=== PATIENT | female | born 1960 | race Caucasian/White ===

== ENCOUNTER 2022-09-11 15:40 | Outpatient (CLI) | payer OTHER ==
--- NOTE | 2022-09-13 09:45 | Mammography Report ---
BILATERAL DIGITAL SCREENING MAMMOGRAM 3D/2D: 09/11/2022 CLINICAL: Routine screening. Comparison is made to exams dated: 03/01/2015 mammogram, 06/04/2013 mammogram, and 09/03/2011 mammogram - [facility]. Both breasts are almost entirely fatty (category a/<25% glandular tissue). No significant masses, calcifications, or other findings are seen in either breast. There has been no significant interval change. IMPRESSION: NEGATIVE There is no mammographic evidence of malignancy. A 1 year screening mammogram is recommended. Based on the Tyrer Cuzick model (a risk assessment model) the patients lifetime risk is 4.4% and her 10 year risk is 2.0%. According to the ACR, ACS, and NCCN guidelines, an annual breast MRI exam anni g with mammogram is recommended if the patients lifetime risk is 20% or greater. This exam was interpreted at Station ID: [id number]. NOTE: For mammograms, a report in lay terms will be sent to the patient. Approximately 15% of breast malignancies will not be visualized mammographically. In the management of a palpable breast mass, a negative mammogram must not discourage biopsy of a clinically suspicious lesion. Electronically Signed By: Jelly [email or web address]/[email or web address]:09/12/2022 09:27:19 ACR BI-RADS Category 1: Negative 3341F PARENCHYMAL PATTERN: (F) - The breast(s) demonstrate(s) diffuse fatty replacement. BI-RADS CATEGORY: (1) - 1 RECOMMENDATION: (ANNUAL) - Recommend routine annual screening mammography. [id number] 1 year screening LATERALITY: (B)
== END 2022-09-11 15:41 | disposition home or self-care (01) ==
LOC: DI.N 15:40
PROVIDERS: ATTEND Internal Medicine
DX: Z12.31 Encounter for screening mammogram for malignant neoplasm of breast (principal)

== ENCOUNTER 2023-01-15 12:20 | Outpatient (CLI) | payer OTHER ==
--- NOTE | 2023-01-15 15:07 | XRAY Report ---
PROCEDURE: Shoulder 2 View RT INDICATIONS: PAIN IN RIGHT SHOULDER TECHNIQUE: 2 views of the shoulder were acquired. COMPARISON: None. FINDINGS: Bones: No fractures or dislocations. No suspicious bony lesions. Visualized ribs appear intact. A cromioclavicular and humeral joint space and associated osteophytosis. Calcification in the expected position of the supraspinatus tendon. Soft tissues: No suspicious soft tissue calcifications. IMPRESSION: 1. Moderate acromioclavicular and glenohumeral osteophytes. 2. 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 Reviewed by: Eduardo Jo on 01/15/2023 3:05 PM PST Approved by: Eduardo Jo on 01/15/2023 3:05 PM PST Station ID: [id number]
== END 2023-01-15 12:21 | disposition home or self-care (01) ==
LOC: DI 12:20
PROVIDERS: ATTEND Physician Assistant
DX: M25.711 Osteophyte, right shoulder (principal); M25.511 Pain in right shoulder

== ENCOUNTER 2023-02-03 12:43 | Outpatient (CLI) | payer OTHER ==
--- NOTE | 2023-02-03 16:33 | MRI Report ---
PROCEDURE: SHOULDER WO - RT INDICATIONS: RIGHT ROTATOR CUSS SYN TECHNIQUE: Noncontrast oblique coronal T2 fast spin echo with fat saturation, oblique sagittal T1 spin echo and T2 fast spin echo with fat saturation, axial T1 spin echo and T2 fast spin echo with fat saturation t hrough the shoulder. COMPARISON: Right shoulder radiograph dated 01/15/2023. FINDINGS: Image quality: Excellent. Rotator cuff: There is full-thickness rupture of distal supraspinatus and infraspinatus at their inse rtion on humeral head with up to 4.3 cm medial retraction of torn tendon fibers to the level of gleno id. Low to moderate grade intrasubstance partial thickness tear involving distal subscapularis is als o seen. There is moderate supraspinatus and infraspinatus muscle atrophy seen on sagittal images. Bones and bursae: Moderate acromioclavicular joint osteoarthritic changes are noted with joint space narrowing, subchondral sclerosis and cyst formation and downward osteophyte formation depressing on m usculotendinous junction of supraspinatus. Superior migration of humeral head in relation to glenoid is also seen. Large amount of joint effusion and subacromial subdeltoid bursal fluid is present. No g ross intra-articular loose bodies. Capsule and soft tissues: There is signal abnormality and contour irregularity involving superior ant erior labrum at 12 to 1:00 position suggestive of subtle superior anterior labral tear. The long head of the biceps tendon is not well visualized at the level of humeral head. The rotator interval appea rs normal, without fibrosis. The coracohumeral ligament is normal in thickness. IMPRESSION: 1. Full-thickness rupture of supraspinatus and infraspinatus at their insertion on humeral head with up to 4.3 cm medial retraction of torn tendon fibers to the level of glenoid. Low to moderate grade i ntrasubstance partial thickness tear involving distal subscapularis. Moderate supraspinatus and infra spinatus muscle atrophy. 2. Moderate acromioclavicular joint osteoarthritis. No fracture or dislocation. Superior migration of humeral head in relation to glenoid. Large amount of joint effusion and subacromial subdeltoid bursa l fluid. No gross loose bodies. 3. Suggestion of superior anterior labral tear at 12 to 1:00 position. 4. Poorly visualized proximal intra-articular portion of long head of biceps concerning for proximal biceps tendon rupture. Reviewed by: Edvin Bhardwaj MD on 02/03/2023 4:32 PM PDT Approved by: Edvin Bhardwaj MD on 02/03/2023 4:32 PM PDT Station ID: [id number]
== END 2023-02-03 12:44 | disposition home or self-care (01) ==
LOC: DI 12:43
PROVIDERS: ATTEND Orthopaedic Surgery
DX: M75.121 Complete rotator cuff tear or rupture of right shoulder, not specified as traumatic (principal); M19.011 Primary osteoarthritis, right shoulder